=== PATIENT | male | born 1950 | race Caucasian/White ===

== ENCOUNTER 2021-04-09 17:12 | Observation (INO) | payer MEDICARE, OTHER ==
[~2021-04-09] VITALS: Ht 177.8 cm; Wt 84.4 kg
[2021-04-09 17:25] VITALS: BP 149/64
[2021-04-09] MEDS ORDERED: FLUO20CA36 PO (17:48)
[2021-04-09] MEDS ORDERED: MELO-106 PO (17:48)
[2021-04-09] MEDS ORDERED: ZOLP5TAB8 PO (17:48)
[2021-04-09] MEDS ORDERED: MELO-108 PO (17:48)
[2021-04-09] MEDS ORDERED: TAMS-1 PO (17:48)
[2021-04-09] MEDS ORDERED: ONDANSETRON 4MG INJ IV PRN (18:30)
[2021-04-09] MEDS ORDERED: ACETAMINOPHEN 325 MG TAB PO PRN (18:30)
[2021-04-09] MEDS ORDERED: NITROGLYCERIN 0.4 MG SL TAB SL PRN (18:30)
[2021-04-09 18:40] LABS: HEMATOCRIT 41.8 % (42-54); MEAN CORPUSCULAR HGB CONC 32.1 g/dL (32.0-36.0); MEAN CORPUSCULAR VOLUME 84.1 fL (79-99); PLATELET COUNT (AUTO) 221 K/uL (130-400); RED BLOOD CELL COUNT(AUTO) 4.97 MIL/uL (4.50-6.20); RED CELL DISTRIBUTION WIDTH 15.1 % (11.0-15.5); WHITE BLOOD COUNT (AUTO) 11.4 K/uL (4.8-10.8)
[2021-04-09 18:51] LABS: INR 1.05 (0.85-1.15); PROTHROMBIN TIME 11.4 SEC (9.6-11.6)
[2021-04-09 18:52] LABS: PARTIAL THROMBOPLASTIN TIME 24.2 SEC (26.3-35.5)
[2021-04-09 18:56] LABS: HEMOGLOBIN A1C 6.1 % (4.0-6.0)
[2021-04-09] MEDS: ASPIRIN 81 MG EC TAB PO SCH (19:00)
[2021-04-09 19:05] LABS: ALBUMIN 3.6 g/dL (3.5-5.0); BILIRUBIN,TOTAL 0.5 mg/dL (0.2-1.0); CREATININE 0.9 mg/dL (0.5-1.5); POTASSIUM 3.8 mmol/L (3.5-5.1); TOTAL PROTEIN, SERUM 6.9 g/dL (6.0-8.3)
[2021-04-09] MEDS ORDERED: ASPIRIN 81MG CHEW TAB ONE (19:43)
[2021-04-09] MEDS: FAMOTIDINE 20MG TAB PO SCH (19:47)
[2021-04-09] MEDS: ACETAMINOPHEN 325 MG TAB PO PRN (19:48)
[2021-04-09 19:58] LABS: BASOPHILS % (MANUAL) 1 % (0-2); EOSINOPHILS % (MANUAL) 1 % (1-6); LYMPHOCYTES % (MANUAL) 20 % (22-44); MAN.DIFF COMMENT-IMPRESSION MANUAL DIFFERENTIAL; MONOCYTES % (MANUAL) 7 % (2-9); PLATELET MORPHOLOGY COMMENT ADEQUATE; SEGMENTED NEUTROPHILS % 71 % (40-70)
[2021-04-09 20:04] VITALS: BP 151/60
[2021-04-09] MEDS ORDERED: MELOXICAM 7.5 MG TABLET PO SCH (20:30)
[2021-04-09] MEDS ORDERED: HYDROXYZINE 25 MG TABLET PO ONE (20:30)
[2021-04-09] MEDS ORDERED: METOPROLOL TARTRATE 25 MG TAB PO SCH (21:00)
[2021-04-09 23:41] LABS: APPEARANCE,URINE Clear (CLEAR); BILIRUBIN,URINE Negative (NEGATIVE); COLOR,URINE Yellow (YELLOW); GLUCOSE, URINE (UA) Negative (NEGATIVE); KETONES,URINE 15 mg/dL (NEGATIVE); LEUKOCYTE ESTERASE ,URINE Trace (NEGATIVE); NITRATE,URINE Negative (NEGATIVE); OCCULT BLOOD,URINE Negative (NEGATIVE); PH,URINE 6.5 (5.0-8.0); PROTEIN,URINE Negative (NEGATIVE)
[2021-04-09 23:49] LABS: AMPHET/METH SCREEN,URINE NEGATIVE (NEGATIVE); BARBITURATE SCREEN, URINE NEGATIVE (NEGATIVE); BENZODIAZEPINES SCREEN,URINE NEGATIVE (NEGATIVE); CANNABINOID SCREEN,URINE NEGATIVE (NEGATIVE); COCAINE SCREEN,URINE NEGATIVE (NEGATIVE); OPIATE SCREEN,URINE NEGATIVE (NEGATIVE); PHENCYCLIDINE SCREEN,URINE NEGATIVE (NEGATIVE)
[2021-04-09 23:54] LABS: BACTERIA,URINE None Seen /HPF (None Seen); MUCUS,URINE Few LPF (None Seen); RBC,URINE 0-1 /HPF (0-1); SQUAMOUS EPITHELIAL CELL,UR None Seen /HPF (0-2); WBC,URINE None Seen /HPF (0-1)
[2021-04-10] VITALS (7 sets, daily range): BP systolic 95–166; BP diastolic 42–92
[2021-04-10] MEDS: ACETAMINOPHEN 325 MG TAB PO PRN ×2 (02:07→18:27)
[2021-04-10 04:30] LABS: BASOPHILS % (AUTO) 0.9 % (0.0-5.0); EOSINOPHILS % (AUTO) 0.9 % (0.0-8.0); HEMATOCRIT 42.3 % (42-54); MEAN CORPUSCULAR HEMOGLOBIN 26.6 pg (27.0-33.0); MEAN CORPUSCULAR HGB CONC 32.2 g/dL (32.0-36.0); MEAN CORPUSCULAR VOLUME 82.6 fL (79-99); NEUTROPHILS % (AUTO) 76.9 % (40.0-77.0); PLATELET COUNT (AUTO) 232 K/uL (130-400); RED BLOOD CELL COUNT(AUTO) 5.12 MIL/uL (4.50-6.20); RED CELL DISTRIBUTION WIDTH 14.9 % (11.0-15.5); WHITE BLOOD COUNT (AUTO) 10.5 K/uL (4.8-10.8)
[2021-04-10 05:04] LABS: ALBUMIN 3.8 g/dL (3.5-5.0); BILIRUBIN,TOTAL 0.5 mg/dL (0.2-1.0); CREATININE 0.9 mg/dL (0.5-1.5); POTASSIUM 3.9 mmol/L (3.5-5.1); TOTAL PROTEIN, SERUM 7.4 g/dL (6.0-8.3)
[2021-04-10] MEDS: FAMOTIDINE 20MG TAB PO SCH ×2 (08:40→20:19)
[2021-04-10] MEDS: ASPIRIN 81 MG EC TAB PO SCH (08:40)
[2021-04-10] MEDS: METOPROLOL TARTRATE 25 MG TAB PO SCH ×2 (08:41→20:18)
[2021-04-10] MEDS ORDERED: ENOXAPARIN SODIUM 40 MG/0.4 ML SYRINGE SQ SCH (09:00)
[2021-04-10] MEDS ORDERED: ENOXAPARIN SODIUM 1 MG/KG SQ SCH (09:00)
[2021-04-10] MEDS ORDERED: LISINOPRIL 20 MG TABLET PO SCH (09:00)
[2021-04-10] MEDS: ENOXAPARIN SODIUM 80 MG/0.8 ML SQ SCH ×2 (09:26→20:19)
[2021-04-10] MEDS: TRAZODONE HCL 50 MG TAB PO SCH (20:19)
[2021-04-11 03:57] VITALS: BP 143/60
[2021-04-11 07:42] VITALS: BP 150/71
[2021-04-11] MEDS ORDERED: REGADENOSON 0.4 MG/5 ML PF SYG IVP SCH (08:00)
[2021-04-11] MEDS: ASPIRIN 81 MG EC TAB PO SCH (08:18)
[2021-04-11] MEDS: METOPROLOL TARTRATE 25 MG TAB PO SCH ×2 (08:18→20:58)
[2021-04-11] MEDS: FAMOTIDINE 20MG TAB PO SCH ×2 (08:18→20:58)
[2021-04-11] MEDS: LISINOPRIL 10 MG TABLET PO SCH (08:18)
[2021-04-11] MEDS: ENOXAPARIN SODIUM 80 MG/0.8 ML SQ SCH (08:19)
[2021-04-11 11:10] VITALS: BP 125/62
[2021-04-11 15:38] VITALS: BP 122/60
[2021-04-11] MEDS ORDERED: [UNRECOGNIZED DRUG - REMARK] MISC SCH (19:30)
[2021-04-11 20:00] VITALS: BP 125/60
[2021-04-11] MEDS: APIXABAN 5 MG TABLET PO SCH (20:58)
[2021-04-11] MEDS: TRAZODONE HCL 50 MG TAB PO SCH (20:58)
[2021-04-12] VITALS: BP 141/63
[2021-04-12 04:00] VITALS: BP 105/49
[2021-04-12] MEDS: ASPIRIN 81 MG EC TAB PO SCH (08:07)
[2021-04-12] MEDS: FAMOTIDINE 20MG TAB PO SCH (08:07)
[2021-04-12] MEDS: METOPROLOL TARTRATE 25 MG TAB PO SCH (08:07)
[2021-04-12] MEDS: LISINOPRIL 10 MG TABLET PO SCH (08:08)
[2021-04-12] MEDS: APIXABAN 5 MG TABLET PO SCH (08:08)
[2021-04-12 09:35] VITALS: BP 99/52
[2021-04-12] MEDS ORDERED: TRAZ-253 PO (12:01)
[2021-04-12] MEDS ORDERED: AEC81 PO (12:01)
[2021-04-12] MEDS ORDERED: LISI10TA24 PO (12:01)
[2021-04-12] MEDS ORDERED: APIX5TAB PO (12:01)
[2021-04-12] MEDS ORDERED: METO25 PO (12:01)
[2021-04-12 13:07] VITALS: BP 118/63
[2021-05-19] MEDS ORDERED: MULT-1367 PO (13:18)
[2021-05-19] MEDS ORDERED: ASCO100031 PO (13:18)
[2021-05-19] MEDS ORDERED: CHOL400C9 PO (13:18)
[2021-05-19] MEDS ORDERED: ACET-3194 PO (13:18)
[2021-05-19] MEDS ORDERED: TRAM50TA4 PO (13:18)
[2021-05-19] MEDS ORDERED: CALC-1209 PO (13:24)
[2021-05-19] MEDS ORDERED: DONE5TAB33 PO (13:24)
[2021-05-19] MEDS ORDERED: GUAI600T50 PO (13:24)
[2021-05-19] MEDS ORDERED: SAMBUCOL PO (13:24)
[2021-05-19] MEDS ORDERED: ZINC220T4 PO (13:24)
[2021-05-19] MEDS ORDERED: EQUATE VISION PO (13:24)
[2021-05-19] MEDS ORDERED: TUME1CAP PO (13:24)
[2021-05-19] MEDS ORDERED: KRIL500C PO (13:24)
[2021-05-19] MEDS ORDERED: [UNRECOGNIZED DRUG - CODE] PO (13:24)
[2021-05-19] MEDS ORDERED: B6/F1CAP PO (13:24)
== END 2021-04-12 13:10 | disposition home or self-care (01) ==
LOC: EDHIP 17:12 → 4DH 17:31
PROVIDERS: ADMIT Internal Medicine; ATTEND Internal Medicine
DX: I48.20 Chronic atrial fibrillation, unspecified (principal); R07.89 Other chest pain; D72.829 Elevated white blood cell count, unspecified; C19 Malignant neoplasm of rectosigmoid junction; I10 Essential (primary) hypertension; I24.8 Other forms of acute ischemic heart disease; G47.33 Obstructive sleep apnea (adult) (pediatric); R00.1 Bradycardia, unspecified; R77.8 Other specified abnormalities of plasma proteins; Z85.048 Personal history of other malignant neoplasm of rectum, rectosigmoid junction, and anus; Z87.891 Personal history of nicotine dependence; Z79.82 Long term (current) use of aspirin; W19.XXXA Unspecified fall, initial encounter; Y92.009 Unspecified place in unspecified non-institutional (private) residence as the place of occurrence of the external cause; Y93.89 Activity, other specified; Y99.8 Other external cause status
CPT/HCPCS: 36415 ×2; 78452; 80053 ×2; 80061; 80305; 81001; 82550 ×3; 83036; 83735 ×2; 83874 ×3; 84443; 84484 ×3; 85025 ×2; 85378; 85610; 85730; 93005; 93017; 93306; 93356; 93970; 96372 ×2; A9500 ×2; G0378 ×4; J1650 ×3; J2785; 96374

== ENCOUNTER 2021-05-23 06:04 | Day surgery (SDC) | payer OTHER ==
[2021-05-19 09:20] LABS: APPEARANCE,URINE Clear (CLEAR); BILIRUBIN,URINE Negative (NEGATIVE); COLOR,URINE Yellow (YELLOW); GLUCOSE, URINE (UA) Negative (NEGATIVE); KETONES,URINE Negative (NEGATIVE); LEUKOCYTE ESTERASE ,URINE Negative (NEGATIVE); NITRATE,URINE Negative (NEGATIVE); OCCULT BLOOD,URINE Negative (NEGATIVE); PH,URINE 7.5 (5.0-8.0); PROTEIN,URINE Negative (NEGATIVE)
[2021-05-19 09:27] LABS: EOSINOPHILS % (AUTO) 4.6 % (0.0-8.0); HEMATOCRIT 41.1 % (42-54); LYMPHOCYTES % (AUTO) 14.8 % (21.0-51.0); MEAN CORPUSCULAR HEMOGLOBIN 27.7 pg (27.0-33.0); MEAN CORPUSCULAR HGB CONC 34.5 g/dL (32.0-36.0); MEAN CORPUSCULAR VOLUME 80.1 fL (79-99); MONOCYTES % (AUTO) 7.7 % (3.0-13.0); NEUTROPHILS % (AUTO) 71.4 % (40.0-77.0); PLATELET COUNT (AUTO) 175 K/uL (130-400); RED BLOOD CELL COUNT(AUTO) 5.13 MIL/uL (4.50-6.20); RED CELL DISTRIBUTION WIDTH 16.9 % (11.0-15.5); WHITE BLOOD COUNT (AUTO) 7.3 K/uL (4.8-10.8)
[2021-05-19 09:35] LABS: CREATININE 0.8 mg/dL (0.5-1.5); POTASSIUM 4.6 mmol/L (3.5-5.1)
[2021-05-19 09:37] LABS: INR 1.09 (0.85-1.15); PROTHROMBIN TIME 11.8 SEC (9.6-11.6)
[2021-05-19 09:39] LABS: PARTIAL THROMBOPLASTIN TIME 29.9 SEC (26.3-35.5)
[2021-05-19 10:10] VITALS: BP 142/67
[~2021-05-23] VITALS: Ht 177.8 cm; Wt 84.8 kg
[2021-05-23] VITALS (11 sets, daily range): BP systolic 105–140; BP diastolic 48–67
[~2021-05-23 06:04] MED LIST: ACET-3194 PO; AEC81 PO; APIX5TAB PO; ASCO100031 PO; B6/F1CAP PO; CALC-1209 PO; CHOL400C9 PO; DONE5TAB33 PO; EQUATE VISION PO; FLUO20CA36 PO; GUAI600T50 PO; KRIL500C PO; LISI10TA24 PO; METO25 PO; MULT-1367 PO; SAMBUCOL PO; TAMS-1 PO; TRAM50TA4 PO; TRAZ-253 PO; TUME1CAP PO; ZINC220T4 PO; [UNRECOGNIZED DRUG - CODE] PO
[2021-05-23] MEDS ORDERED: 0.9%NACL 1000ML 1,000 ML IV ONE (06:42)
[2021-05-23] MEDS ORDERED: NITROGLYCERIN 2 MG VIAL IV ONE (07:07)
[2021-05-23] MEDS ORDERED: FENTANYL CITRATE PF 50 MCG/1 ML 2ML VIAL ONE (07:08)
[2021-05-23] MEDS ORDERED: IOHEXOL-350 50ML VIAL IV ONE (07:08)
[2021-05-23] MEDS ORDERED: IOHEXOL 350 MG/ML 100ML INFUS..BTL IV ONE (07:08)
[2021-05-23] MEDS ORDERED: MIDAZOLAM HCL 1 MG/ML 2ML VIAL ONE (07:08)
[2021-05-23] MEDS ORDERED: LIDOCAINE HCL 400MG/20ML VIAL ONE (07:10)
[2021-05-23] MEDS ORDERED: IOHEXOL-350 75 ML VIAL IV ONE (07:56)
[2021-05-23] MEDS ORDERED: HYDRALAZINE 20MG/ML VIAL ONE (08:00)
[2021-05-23] MEDS ORDERED: GLUCAGON 1MG KIT 1 MG ML IM PRN (08:30)
[2021-05-23] MEDS ORDERED: DEXTROSE 50%-WATER 50 ML DISP.SYRIN IV PRN (08:30)
[2021-05-23] MEDS ORDERED: 0.9%NACL 1000ML 1,000 ML IV SCH (08:30)
[2021-05-23] MEDS ORDERED: DiphenhydrAMINE HCL 50 MG/ML VIAL ONE (08:47)
[2021-05-23] MEDS ORDERED: TRAMADOL HCL 50 MG TABLET ONE (09:04)
[2021-05-23] MEDS ORDERED: TRAMADOL HCL 50 MG TABLET PO SCH (09:30)
== END 2021-05-23 14:45 | disposition home or self-care (01) ==
LOC: DAH 06:04
PROVIDERS: ATTEND Student in an Organized Health Care Education/Training Program
DX: I25.119 Atherosclerotic heart disease of native coronary artery with unspecified angina pectoris (principal); I10 Essential (primary) hypertension; I48.91 Unspecified atrial fibrillation; E78.2 Mixed hyperlipidemia; R74.8 Abnormal levels of other serum enzymes; R94.31 Abnormal electrocardiogram [ECG] [EKG]; Z87.891 Personal history of nicotine dependence; Z72.89 Other problems related to lifestyle; Z98.890 Other specified postprocedural states; Z79.01 Long term (current) use of anticoagulants
CPT/HCPCS: 36415; 71045; 80048; 81003; 85025; 85610; 85730; 93005; 93458; A4215; A4216; A4221; A4222; A4223 ×3; A4606; A4663; C1760; C1894 ×2; J0360; J1200; J2250; J3010; J3490 ×2; J7030; Q9965; Q9967 ×2; 96360; 96361; 99156; 99157

== ENCOUNTER → 2022-02-08 | Outpatient (CLI) | payer OTHER ==
[~2022-02-08] MED LIST changes: -TRAM50TA4 PO
== END | disposition home or self-care (01) ==
LOC: RAH 08:34
PROVIDERS: ATTEND Internal Medicine Gastroenterology
DX: K21.9 Gastro-esophageal reflux disease without esophagitis (principal); K92.1 Melena; K29.70 Gastritis, unspecified, without bleeding
CPT/HCPCS: 74240